=== PATIENT | male | born 1955 | race Two or more races ===

== ENCOUNTER 2022-01-19 09:30 | Inpatient (IN) | payer OTHER ==
[~2022-01-19] VITALS: Ht 193 cm; Wt 130.2 kg
[2022-01-25] MEDS ORDERED: INTESTINEX680 M1 PO (07:45)
[2022-01-25] MEDS ORDERED: ULTRACET PO (07:45)
== END 2022-01-25 11:49 | disposition home or self-care (01) | DRG 330 ==
LOC: SURH 01-21 08:36 → O/R 01-21 08:36 → SURH 01-21 09:15
PROVIDERS: ADMIT Surgery; ATTEND Surgery
PROC: 07BB4ZZ Excision of Mesenteric Lymphatic, Percutaneous Endoscopic Approach (ICD-10-PCS; 2022-01-21)
PROC: 0DBU4ZZ Excision of Omentum, Percutaneous Endoscopic Approach (ICD-10-PCS; 2022-01-21)
PROC: 4A12X4Z Monitoring of Cardiac Electrical Activity, External Approach (ICD-10-PCS; 2022-01-21)
PROC: 0DTF4ZZ Resection of Right Large Intestine, Percutaneous Endoscopic Approach (ICD-10-PCS; principal; 2022-01-21 12:25)
DX: C18.2 Malignant neoplasm of ascending colon (principal); K56.52 Intestinal adhesions [bands] with complete obstruction; K38.9 Disease of appendix, unspecified; D64.9 Anemia, unspecified; G47.39 Other sleep apnea; Z20.822 Contact with and (suspected) exposure to COVID-19